=== PATIENT | female | born 1940 | race Two or more races ===

== ENCOUNTER 2017-01-17 13:40 | Emergency (ER) | payer SELFPAY ==
[~2017-01-17] VITALS: Ht 160 cm; Wt 68.0 kg
[2017-01-17 13:46] VITALS: BP 145/68
[2017-01-17] MEDS ORDERED: HYDROCODONE/APAP 5/325MG 1 EACH TABLET PO ONE (14:30)
[2017-01-17] MEDS ORDERED: ONDANSETRON 4 MG TAB.RAPDIS SL ONE (14:30)
[2017-01-17] MEDS ORDERED: ONDANSETRON 4 MG TAB.RAPDIS ONE (14:43)
[2017-01-17] MEDS ORDERED: HYDROCODONE/APAP 5/325MG 1 EACH TABLET ONE (14:43)
== END 2017-01-17 15:25 | disposition home or self-care (01) ==
LOC: ER 13:42
DX: S89.91XA Unspecified injury of right lower leg, initial encounter (principal); I10 Essential (primary) hypertension; E11.9 Type 2 diabetes mellitus without complications; E78.5 Hyperlipidemia, unspecified; W10.9XXA Fall (on) (from) unspecified stairs and steps, initial encounter; W01.0XXA Fall on same level from slipping, tripping and stumbling without subsequent striking against object, initial encounter; Y93.01 Activity, walking, marching and hiking; Y92.89 Other specified places as the place of occurrence of the external cause; Y99.8 Other external cause status
CPT/HCPCS: 73564-TC; A4606; Q0162; Z7610